=== PATIENT | female | born 1965 | race Caucasian/White ===

== ENCOUNTER 2021-12-06 10:28 | Emergency (ER) | payer OTHER | END 2021-12-06 12:46 | disposition home or self-care (01) | LOC: JP.ED 10:28 | DX: T17.208A Unspecified foreign body in pharynx causing other injury, initial encounter (principal); K21.9 Gastro-esophageal reflux disease without esophagitis; Z79.899 Other long term (current) drug therapy | CPT/HCPCS: 70486; 99283 ==